=== PATIENT | male | born 1945 | race Caucasian/White ===

== ENCOUNTER 2019-08-24 14:45 | Inpatient (IN) | payer MEDICARE ==
--- OUTSIDE RECORDS SUMMARY | 2019-08-24 15:16 | XMS REPORT | Continuity of Care Document ---
:1945 External Reference #:[id number] Author Name Willow Graff M.D. 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 Available Social History Type Date Description Comments Sex Unknown ETOH Use Currently consumes alcohol Tobacco Use Start: Unknown Patient has never smoked Smoking Status Reviewed: 07/02/19 Patient has never smoked Exercise Type/Frequency Exercises sporadically Allergies, Adverse Reactions, Alerts Description No Known Drug Allergies Medications Active Medications SIG Qnty Indications Ordering Provider Date Metformin HCL 1 by mouth twice Unknown 500mg a day Tablets Advil Unknown Naproxen 1 tablet with Unknown 500mg Tablets food by mouth twice a day Immunizations Description No Information Available Vital Signs Date Vital Result Comment 07/02/2019 10:40am Height 70 inches 5'10" Weight 200.00 lb Heart Rate 77 /min Respiratory Rate 16 /min Body Temperature 96.5 F Pain Level 0 BMI (Body Mass Index) 28.7 kg/m2 06/04/2019 1:45pm Height 70 inches 5'10" Weight 200.00 lb Heart Rate 76 /min Body Temperature 97.8 F O2 % BldC Oximetry 98 % BMI (Body Mass Index) 28.7 kg/m2 Results Description No Information Available Procedures Description No Information Available Medical Devices Description No Information Available Encounters Type Date Location Provider Dx Diagnosis Office Visit 06/04/2019 [facility] Nury Roque, S67.02xD Crushing injury 1:30p at [place] [facility]-C of left thumb, subsequent encounter S62.525D Nondisp fx of dist phalanx of l thm, 7thD Office Visit 05/22/2019 [facility] S67.02xA Crushing injury 2:00p [facility] at [place] of left thumb, [place] initial encounter S62.525B Nondisp fx of distal phalanx of left thumb, init for opn fx Assessments Date Code Description Provider 07/02/2019 S67.02xD Crushing injury of left thumb, subsequent Willow Graff M.D. encounter 07/02/2019 S62.525D Nondisplaced fracture of distal phalanx of Willow Graff M.D. left thumb, subsequent encounter for fracture with routine healing 06/04/2019 S67.02xD Crushing injury of left thumb, subsequent Nury Lópezrainer , [facility] encounter 06/04/2019 S62.525D Nondisplaced fracture of distal phalanx of Nury Roque, [facility] left thumb, subsequent encounter for fracture with routine healing 05/22/2019 S67.02xA Crushing injury of left thumb, initial Willow Graff M.D. encounter 05/22/2019 S62.525B Nondisplaced fracture of distal phalanx of Willow Graff M.D. left thumb, initial encounter for open fracture Plan of Treatment Future Appointment(s):08/13/2019 10:15 am - Willow Graff M.D. at [facility] at Imxwjg2607/02/2019 - Willow Graff M.D.S67.02xD Crushing injury of left thumb, subsequent encounterNew Therapy:Physical TherapyFollow up:Follow up: 6 [id number] Nondisplaced fracture of distal phalanx of left thumb, subsequent encounter for fracture with routine healing Functional Status Description No Information Available Mental Status Description No Information Available Referrals Description No Information Available
--- OUTSIDE RECORDS SUMMARY | 2019-08-24 15:16 | XMS REPORT | Continuity of Care Document ---
:1945 External Reference #:[id number] Author Name Willow Graff M.D. 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 Problems Description No Information Available Social History Type Date Description Comments Sex Unknown ETOH Use Currently consumes alcohol Tobacco Use Start: Unknown Patient has never smoked Smoking Status Reviewed: 08/13/19 Patient has never smoked Exercise Type/Frequency Exercises sporadically Allergies, Adverse Reactions, Alerts Description No Known Drug Allergies Medications Active Medications SIG Qnty Indications Ordering Provider Date Metformin HCL 1 by mouth twice Unknown 500mg Tablets a day Advil Unknown Immunizations Description No Information Available Vital Signs Date Vital Result Comment 08/13/2019 10:48am Height 70 inches 5'10" Weight 200.00 lb Heart Rate 82 /min BP Systolic 132 mmHg BP Diastolic 78 mmHg Respiratory Rate 18 /min O2 % BldC Oximetry 98 % BMI (Body Mass Index) 28.7 kg/m2 07/02/2019 10:40am Height 70 inches 5'10" Weight 200.00 lb Heart Rate 77 /min Respiratory Rate 16 /min Body Temperature 96.5 F Pain Level 0 BMI (Body Mass Index) 28.7 kg/m2 Results Description No Information Available Procedures Description No Information Available Medical Devices Description No Information Available Encounters Type Date Location Provider Dx Diagnosis Office Visit 07/02/2019 [facility] Willow Graff, S67.02xD Crushing injury 10:30a at [place] [facility] of left thumb, subsequent encounter S62.525D Nondisp fx of dist phalanx of l thm, 7thD Office Visit 06/04/2019 Ab[facility] Arrington S67.02xD Crushing injury 1:30p Orthopedics at [facility], RPA-C of left thumb, [place] subsequent encounter S62.525D Nondisp fx of dist phalanx of l thm, 7thD Office Visit 05/22/2019 [facility] Albertoie S67.02xA Crushing injury 2:00p [facility] at [place] Graff of left thumb, [place] initial encounter S62.525B Nondisp fx of distal phalanx of left thumb, init for opn fx Assessments Date Code Description Provider 08/13/2019 S67.02xD Crushing injury of left thumb, subsequent Willow Graff M.D. encounter 08/13/2019 S62.525D Nondisplaced fracture of distal phalanx of Willow Graff M.D. left thumb, subsequent encounter for fracture with routine healing 07/02/2019 S67.02xD Crushing injury of left thumb, subsequent Willow Graff M.D. encounter 07/02/2019 S62.525D Nondisplaced fracture of distal phalanx of Willow Graff M.D. left thumb, subsequent encounter for fracture with routine healing 06/04/2019 S67.02xD Crushing injury of left thumb, subsequent Nury Roque , [facility] encounter 06/04/2019 S62.525D Nondisplaced fracture of distal phalanx of Nury Rouqe, [facility]-C left thumb, subsequent encounter for fracture with routine healing 05/22/2019 S67.02xA Crushing injury of left thumb, initial Willow Graff M.D. encounter 05/22/2019 S62.525B Nondisplaced fracture of distal phalanx of Willow Graff M.D. left thumb, initial encounter for open fracture Plan of Treatment Future Appointment(s):08/19/2019 10:00 am - José Manuel Sunshine MD at [facility]08/13/2019 - Willow Graff M.D.S67.02xD Crushing injury of left thumb, subsequent encounterFollow up:Follow up: As [id number] Nondisplaced fracture of distal phalanx of left thumb, subsequent encounter for fracture with routine healing Functional Status Description No Information Available Mental Status Description No Information Available Referrals Description No Information Available
--- OUTSIDE RECORDS SUMMARY | 2019-08-24 15:16 | XMS REPORT | Continuity of Care Document ---
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 Problems Description No Information Available Social History Type Date Description Comments Sex Unknown ETOH Use Currently consumes alcohol Tobacco Use Start: Unknown Patient has never smoked Smoking Status Reviewed: 08/22/19 Patient has never smoked Exercise Type/Frequency Exercises sporadically Allergies, Adverse Reactions, Alerts Description No Known Drug Allergies Medications Active Medications SIG Qnty Indications Ordering Date Provider Celecoxib take one cap by 180caps M06.4 José Manuel Sunshine, 08/22/2019 200mg mouth twice daily MD Capsules for arthritis pain Metformin HCL 1 by mouth twice a Unknown 500mg day Tablets Sildenafil Citrate Take 2-5 Tablets Unknown By Mouth Every Day 20mg Tablets as Needed Immunizations Description No Information Available Vital Signs Date Vital Result Comment 08/22/2019 7:46am Height 70 inches 5'10" Weight 188.00 lb Heart Rate 94 /min BP Systolic 131 mmHg BP Diastolic 81 mmHg Body Temperature 98.2 F Pain Level 0 O2 % BldC Oximetry 95 % BMI (Body Mass Index) 27.0 kg/m2 08/13/2019 10:48am Height 70 inches 5'10" Weight 200.00 lb Heart Rate 82 /min BP Systolic 132 mmHg BP Diastolic 78 mmHg Respiratory Rate 18 /min O2 % BldC Oximetry 98 % BMI (Body Mass Index) 28.7 kg/m2 Results Description No Information Available Procedures Description No Information Available Medical Devices Description No Information Available Encounters Type Date Location Provider Dx Diagnosis Office Visit 08/13/2019 [facility] Willow S67.02xD Crushing injury 10:15a at [place] of left thumb, subsequent encounter S62.525D Nondisp fx of dist phalanx of l thm, 7thD Office Visit 07/02/2019 [facility] Daugherty S67.02xD Crushing injury 10:30a [facility] at [place] of left thumb, [place] subsequent encounter S62.525D Nondisp fx of dist phalanx of l thm, 7thD Office Visit 06/04/2019 Abbe Arrington S67.02xD [facility] 1:[facility] [place] subsequent encounter S62.525D Nondisp fx of dist phalanx of l thm, 7thD Office Visit 05/22/2019 Abbe De Souzahanie S67.02xA Crushing injury 2:00p [facility]oped[facility] at [place] of left thumb, [place] initial encounter S62.525B Nondisp fx of distal phalanx of left thumb, init for opn fx Assessments Date Code Description Provider 08/22/2019 M06.4 Inflammatory polyarthropathy José Manuel Sunshine MD 08/22/2019 R76.0 Raised antibody titer José Manuel Sunshine MD 08/13/2019 S67.02xD Crushing injury of left thumb, subsequent Willow Caal M.D. encounter 08/13/2019 S62.525D Nondisplaced fracture of distal phalanx of Willow Caal M.D. left thumb, subsequent encounter for fracture with routine healing 07/02/2019 S67.02xD Crushing injury of left thumb, subsequent Willow Caal M.D. encounter 07/02/2019 S62.525D Nondisplaced fracture of distal phalanx of Willow Caal M.D. left thumb, subsequent encounter for fracture with routine healing 06/04/2019 S67.02xD Crushing injury of left thumb, subsequent [facility] RPA-C encounter 06/04/2019 S62.525D Nondisplaced fracture of distal phalanx of Nury Roque, RPA-C left thumb, subsequent encounter for fracture with routine healing 05/22/2019 S67.02xA Crushing injury of left thumb, initial Willow Caal M.D. encounter 05/22/2019 S62.525B Nondisplaced fracture of distal phalanx of Willow Caal M.D. left thumb, initial encounter for open fracture Plan of Treatment Future Appointment(s):10/27/2019 11:00 am - José Manuel Sunshine MD at [facility]/22/2019 - José Manuel Sunshine, MDM06.4 Inflammatory polyarthropathyNew Medication:Celecoxib 200 mg - take one cap by mouth twice daily for arthritis painComments:Concern for possible Psoriatic Arthritis ( brother has psoriasis)Celebrex (celecoxib) twice dailyWhenyou start this, STOP PREDNISONELabs I recommend:JENNY panel, CK and aldolase, quantiferon TB, hepatitis B core and surface antibody, Hepatitis C antibody, repeat ESR and CRP , CCPFollow up:8 [id number] Raised antibody titer Functional Status Description No Information Available Mental Status Description No Information Available Referrals Description No Information Available
--- NOTE | 2019-08-24 15:22 | ED ---
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 His family notes that he has had a cough along with a cold for 1.5 weeks, but denies any other noteworthy symptoms such as fever. Family notes that he has been eating less lately as he has been trying to lose weight, and drinking a lot of fluids that likely include juice. He has a history of pre- diabetes as well as a thumb injury for which he saw a deliver driver last week. He takes Metformin BID and Celebrex BID; family notes he has only take the Celebrex at 2100 yesterday and 0900 today. He lives by himself. - History Of Current Complaint Chief Complaint: EDDiabeticProb Time Seen by Provider: 08/24/19 15:15 Hx Obtained From: Family/Identification Officer Onset/Duration: Still Present Location: Negative Character: Unable To Describe Associated Signs And Symptoms: Positive: Weakness, Cough, Other - lethargy. Negative: Fever - Allergies/Home Medications Allergies/Adverse Reactions: Allergies Allergy/AdvReac Type Severity Reaction Status Date / Time No Known Allergies Allergy Verified 08/24/19 16:49 Home Medications: Home Medications Metformin HCl 500 mg PO BID 08/24/19 [History Confirmed 08/24/19] celeCOXIB CAP* [Celebrex CAP*] 200 mg PO BID 08/24/19 [History Confirmed ] PMH/Surg Hx/FS Hx/Imm Hx Musculoskeletal History: Denies: Hx Rheumatoid Arthritis, Hx Osteoporosis Sensory History: Denies: Hx Legally Blind, Hx Deafness Opthamlomology History: Denies: Hx Legally Blind EENT History: Denies: Hx Deafness - Immunization History Date of Influenza Vaccine: none Infectious Disease History: No Infectious Disease History: Denies: Traveled Outside the [place] in Last 30 Days - Family History Known Family History: Negative: Hypertension, Diabetes - Social History Alcohol Use: Rare Substance Use Type: Reports: None Smoking Status (MU): Never Smoked Tobacco Review of Systems Constitutional: Other - lethargy Negative: Fever Positive: Cough Positive: Weakness All Other Systems Reviewed And Are Negative: Yes Physical Exam - Summary Physical Exam Summary: VITAL SIGNS: Reviewed. GENERAL: Patient is an elderly male who seems ill. Patient is not in any acute respiratory distress. HEAD AND FACE: No signs of trauma. No ecchymosis, hematomas or skull depressions. No sinus tenderness. EYES: PERRLA, EOMI x 2, No injected conjunctiva, no nystagmus. EARS: Hearing grossly intact. Ear canals and tympanic membranes are within normal limits. MOUTH: Oropharynx within normal limits. Dry oral mucosa. NECK: Supple, trachea is midline, no adenopathy, no JVD, no carotid bruit, no c- spine tenderness, neck with full ROM. CHEST: Symmetric, no tenderness at palpation. LUNGS: Clear to auscultation bilaterally. No wheezing. Crackles in base of both lungs. CVS: Regular rate and rhythm, S1 and S2 present, no murmurs or gallops appreciated. ABDOMEN: Soft, non-tender. No signs of distention. No rebound, no guarding, and no masses palpated. Bowel sounds are normal. EXTREMITIES: FROM in all major joints, no edema, no cyanosis or clubbing. NEURO: Alert and oriented x 3. No acute neurological deficits. Speech is normal and follows commands. SKIN: Dry and warm. Increased turgor. Triage Information Reviewed: Yes Vital Signs On Initial Exam: Initial Vitals Temp Pulse Resp BP Pulse Ox 98.1 F 103 18 159/99 91 08/24/19 14:56 08/24/19 14:56 08/24/19 14:56 08/24/19 14:56 08/24/19 14:56 Vital Signs Reviewed: Yes Procedures - Sedation Patient Received Moderate/Deep Sedation with Procedure: No Diagnostics - Vital Signs Vital Signs Temp Pulse Resp BP Pulse Ox 08/24/19 14:56 98.1 F 103 18 159/99 91 - Laboratory Result Diagrams: 08/24/19 16:18 08/25/19 06:09 Lab Statement: Any lab studies that have been ordered have been reviewed, and results considered in the medical decision making process. - Radiology chest x-ray Radiology Interpretation Completed By: Radiologist Summary of Radiographic Findings: IMPRESSION: 1. Left greater than right basilar airspace opacification (infiltrate versus. atelectasis). 2. Severe left glenohumeral osteoarthropathy. This report was reviewed by the ED physician. - EKG 1545 Cardiac Rate: Tachycardia EKG Rhythm: Sinus Tachycardia Summary of EKG Findings: Sinus tachycardia at 102bpm. Q wave in leads II and III. No STEMI. This EKG was reviewed and interpreted by the ED physician. 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 His family notes that he has had a cough along with a cold for 1.5 weeks, but denies any other noteworthy symptoms such as fever. Family notes that he has been eating less lately as he has been trying to lose weight, and drinking a lot of fluids that likely include juice. He has a history of pre-diabetes as well as a thumb injury for which he saw a deliver driver last week. He takes Metformin BID and Celebrex BID; family notes he has only take Celebrex at 2100 yesterday and 0900 today. He lives by himself. In the ED course the patient was placed in a case monitor, IV access was obtained,2 liters of IV fluids started and Rocephin given for productive cough and questionable fever. Blood test w/o a significant abnormality except for sodium 151, anion gap is 21, BUN is 39, creatinine is 1.63, glucose 1 dose and 43, calcium 10.4, magnesium is 3.1, alkaline phosphatase is 212, and CRP of 288. Urinalysis is negative for UTI. Influenza A and B is negative. Chest x-ray impression: Left greater than right basilar airspace opacification. In the ED course the patient continues with IV fluids and the patient was placed in an insulin drip. I discussed my physical exam and findings with Dr. Calles from the hospital services who accepted the patient for the ICU services. - Diagnoses Provider Diagnoses: Diabetic hyperosmolar non-ketotic state, Hypernatremia, Dehydration, Acute renal insufficiency - Physician Notifications Discussed Care Of Patient With: Susanne Calles Time Discussed With Above Provider: 17:16 Instructed by Provider To: Other - Patient's case was discussed with Dr. Calles , who agrees to admit. - Critical Care Time Critical Care Time: 30-74 min Discharge ED - Sign-Out/Discharge Documenting (check all that apply): Patient Departure - admit - Discharge Plan Condition: Stable Disposition: ADMITTED TO [facility] - Billing Disposition and Condition Condition: STABLE Disposition: Admitted to [facility] - Attestation Statements Document Initiated by Scribe: Yes Documenting Scribe: Handy Tilley Provider For Whom Willie is Documenting (Include Credential): Robel Theodore MD Scribe Attestation: I, Handy Tilley, scribed for Robel Theodore MD on 08/25/19 at 1337. Scribe Documentation Reviewed: Yes Provider Attestation: The documentation as recorded by the Handy romero accurately reflects the service I personally performed and the decisions made by me, Robel Theodore MD Status of Scribe Document: Viewed
[2019-08-24] MEDS ORDERED: NS 0.9% 1000 ML** 2,000 ML IV ONE (15:29)
[2019-08-24 16:11] LABS: Influenza A Molecular Negative (Negative); Influenza B Molecular Negative (Negative)
[2019-08-24 16:30] LABS: ABS Neutrophils 8.5 10^3/ul (1.5-7.7); Hematocrit 47 % (42-52); Hemoglobin 15.3 g/dL (14.0-18.0); Lymphocyte % 9.7 %; Mean Corpuscular HGB Conc 33 g/dL (31-36); Mean Corpuscular Hemoglobin 34 pg (27-31); Mean Corpuscular Volume 102 fL (80-94); Mean Platelet Volume 8.9 fL (7.4-10.4); Platelet Count 252 10^3/uL (150-450); Red Blood Count 4.58 10^6 /uL (4.18-5.48); Red Cell Distribution Width 15 % (10-15); White Blood Count 10.6 10^3/uL (3.5-10.8)
[2019-08-24 16:44] LABS: Alcohol < 10 mg/dL (<10)
[2019-08-24 16:45] LABS: Urine Appearance Clear; Urine Blood Negative (Negative); Urine Color Straw; Urine Ketones 1+ (Negative); Urine Protein Negative (Negative); Urine Urobilinogen Negative (Negative)
[2019-08-24 16:46] LABS: Urine Bilirubin Negative (Negative); Urine Glucose 3+(>=500 mg/dL) (Negative); Urine Nitrite Negative (Negative)
[2019-08-24 16:46] LABS: ALT 30 U/L (7-52); AST 14 U/L (13-39); Albumin 3.9 g/dL (3.2-5.2); Albumin/Globulin Ratio 1.1 (1-3); Alkaline Phosphatase 212 U/L (34-104); BUN/Creatinine Ratio 23.9 (8-20); Blood Urea Nitrogen 39 mg/dL (6-24); C Reactive Protein 288.44 mg/L (<8.01); CO2 Carbon Dioxide 22 mmol/L (22-32); Calcium 10.4 mg/dL (8.6-10.3); Chloride 108 mmol/L (101-111); Creatine Kinase 194 U/L (10-223); EGFR African American 50.6 (>60); EGFR Non-African American 41.8 (>60); Globulin 3.7 g/dL (2-4); Magnesium 3.1 mg/dL (1.9-2.7); Potassium 4.8 mmol/L (3.5-5.0); Total Protein 7.6 g/dL (6.4-8.9)
[2019-08-24 16:47] LABS: Anion Gap 21 mmol/L (2-11); Sodium 151 mmol/L (135-145)
[2019-08-24 16:48] LABS: Troponin I 0.01 ng/mL (<0.03)
[2019-08-24] MEDS ORDERED: cefTRIAXone(*) 1 GM in NS 0.9% 50 ML* 50 ML IVPB ONE (16:53)
[2019-08-24 17:06] LABS: Glucose 1043 mg/dL (70-100)
[2019-08-24] MEDS: NS 0.9% 1000 ML** 1,000 ML IV ONE ×2 (17:35→18:01)
[2019-08-24] MEDS ORDERED: Insulin Infusion 100unit/100mL 100 UNIT/100 ML BAG IV SCH ×2 (18:00→21:00)
[2019-08-24] MEDS: Insulin Infusion 100unit/100mL 100 UNIT/100 ML BAG IV SCH ×2 (18:01→20:52)
[2019-08-24] MEDS ORDERED: Al Hydrox/Mg Hydrox/Simet LIQ* 30 ML UDC PO PRN (18:16)
[2019-08-24] MEDS ORDERED: Senna TAB 8.6 mg* TAB PO PRN (18:16)
[2019-08-24] MEDS ORDERED: Acetaminophen TAB* 325 MG PO PRN (18:16)
[2019-08-24] MEDS ORDERED: Ondansetron INJ* 2 MG/ML VIAL IV PRN (18:16)
[2019-08-24] MEDS ORDERED: Insulin REGULAR(*) 1 UNITS UNIT IV PUSH ONE (18:25)
[2019-08-24] MEDS ORDERED: Lactated Ringers 1000 ML Bag* 1,000 ML IV SCH ×3 (19:00)
[2019-08-24 19:10] LABS: BUN/Creatinine Ratio 25.4 (8-20); EGFR African American 63.4 (>60); EGFR Non-African American 52.4 (>60); Potassium 4.6 mmol/L (3.5-5.0)
[2019-08-24] MEDS: Enoxaparin(*) 40 MG/0.4 ML SYR SUBCUT SCH (20:51)
[2019-08-24] MEDS: Azithromycin 500 mg/250 ml NS 500 MG/250 ML BAG IVPB SCH (20:51)
[2019-08-24 22:47] LABS: BUN/Creatinine Ratio 24.5 (8-20); Calcium 9.1 mg/dL (8.6-10.3); EGFR African American 79.6 (>60); EGFR Non-African American 65.8 (>60); Potassium 3.7 mmol/L (3.5-5.0)
--- NOTE | 2019-08-24 22:56 | HP ---
CC: Dr. Joe Kaur * HISTORY AND PHYSICAL: DATE OF ADMISSION: 08/24/19 PROVIDER: OLIVER Gandara. ATTENDING PHYSICIAN WHILE IN THE HOSPITAL: Dr. Nayeli Colvin * (dictated by OLIVER Gandara). PRIMARY CARE PROVIDER: Dr. Joe Kaur. CHIEF COMPLAINT: Altered mental status. HISTORY OF PRESENT ILLNESS: Wolf Murray is a 73-year-old white male with past medical history significant for inflammatory polyarthropathy and diabetes mellitus type 2, who presented to the emergency department today in a private vehicle with his sister due to being found to have altered mental status at home. The patient's sister spoke with him yesterday and he appeared to be his normal self though he was reportedly feeling somewhat unwell with URI symptoms. The patient is a poor historian at this time and much of the history is gathered from his sister. The patient's friend went over to his house today and found him to be significantly altered and incoherent. The patient called the patient's sister because he was refusing EMS or to be brought to the emergency department. The sister went to his house and then brought him to the emergency department himself. The patient is frequently not answering questions appropriately and taking a lot of prompting to get answers though he does answer questions appropriately at times. He tells me he does not have fevers or chills, chest pain, difficulty breathing, abdominal pain. He did mention that he vomited once today and was feeling nauseous at that time, but is no longer feeling nauseous. He denies abdominal pain, diarrhea, constipation. He does mention that he has had blurred vision today and denies scotoma. He tells me he has been drinking a lot of juice and milk. His sister tells me that he is doing this because of an attempted liquid diet to lose weight and she is unsure of why. She believes he stopped taking his prednisone 2 to 3 days ago when he started taking Celebrex upon direction from Dr. Ferreira. I did review outpatient records and Dr. Ferreira is questioning whether the patient has psoriatic arthritis, but at this point would describe him to have inflammatory polyarthropathy, however, some labs are pending. ED COURSE: The patient was found to have glucose of 1043 and sodium of 151. His lactic acid was 4.4. Emergency department gave the patient 1 g of ceftriaxone and started insulin infusion at 4 units per hour and asked the hospitalist to evaluate the patient for admission. PAST MEDICAL HISTORY: 1. Diabetes mellitus type 2. 2. Inflammatory polyarthropathy previously on prednisone, which was recently discontinued with a slow taper. PAST SURGICAL HISTORY: 1. Left shoulder surgery when the patient was a teenager. 2. Hernia repair. HOME MEDICATIONS: 1. Metformin 500 mg p.o. b.i.d. 2. Celebrex 200 mg p.o. b.i.d. ALLERGIES: No known drug allergies. FAMILY HISTORY: Father at age 70 due to aortic aneurysm. Mother at age 99 due to complications related to UTI and was otherwise healthy. Neither parent had history of coronary artery disease or diabetes. SOCIAL HISTORY: The patient lives alone. He is . He has 2 adult children who live out of the area. 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 He rarely drinks alcohol. He denies tobacco use, was never a smoker, and denies illicit drug use. The patient's sister, Abbey Murray, is his surrogate medical decision maker should he need one. REVIEW OF SYSTEMS: An 11-point review of systems was completed and all pertinent positives and negatives are above in the HPI. All other systems are negative. PHYSICAL EXAMINATION GENERAL: An elderly white male, lying in hospital bed, appearing comfortable, and in no acute distress. Sister at bedside. VITAL SIGNS: Temperature 98.1 degrees Fahrenheit; pulse 106, later 92 beats per minute; respiratory rate 21 beats per minute and later 37 respirations per minute; oxygen saturation 88% on room air; blood pressure 159/99. HEENT: Head: Normocephalic, atraumatic. Eyes: Horizontal jerk nystagmus at rest as well as with extraocular movements on exam. Unable to assess visual field defect due to nystagmus and poor attention. Pupils are equal and reactive to light and accommodation, unable to perform retinal exam due to nystagmus. ENT: Mucous membranes significantly dry, edentulous. NECK: Supple without JVD. LUNGS: Clear to auscultation throughout. CARDIO: Regular rate and rhythm without murmurs, rubs, or gallops. ABDOMEN: Normoactive bowel sounds x4 quadrants. Abdomen is soft, nontender, nondistended without suprapubic tenderness. EXTREMITIES: No clubbing, cyanosis or edema. NEURO: The patient is alert and oriented to self and time, but not to location or situation with significantly poor attention, answers questions inappropriately at times, is able to follow basic commands. Strength is 5/5 in all extremities. Sensation is grossly intact throughout. Tongue is midline. Speech is dysarthric; however, this may be secondary to dryness of mucous membranes. Face is symmetrical. SKIN: Warm dry and intact. DIAGNOSTIC STUDIES/LAB DATA: White blood cell count 10.6, hemoglobin 15.3, hematocrit 47, platelets 252. Sodium 151, potassium 4.8, chloride is 108, carbon dioxide 22, anion gap 21, BUN 39, creatinine 1.63, glucose 1043, lactic acid 4.4, calcium 10.4, magnesium 3.1. Total bilirubin 0.5, AST 14, ALT 30, alk phos 212. CK is 194, CRP is 288, troponin 0.01. Urinalysis with +1 ketones , +3 glucose. Otherwise unremarkable. Serum alcohol less than 10. Influenza A and B negative. ABG pH 7.43, ABG CO2 32, ABG 02 66, ABG bicarb 23. Chest x-ray, impression: Left greater than right basilar airspace opacification , severe left glenohumeral osteoarthropathy. EKG: Sinus tachycardia, rate 102 beats per minute. No prior EKGs for comparison, less than [address] depressions in V4 and V5. CT of the brain report is pending from radiologist at this time; however, I do not see intracranial hemorrhage per my read. ASSESSMENT AND PLAN: Wolf Murray is a 73-year-old white male with past medical history significant for diabetes mellitus type 2 and inflammatory polyarthropathy, who presents to the emergency department today due to altered mental status. The patient will be admitted inpatient to the ICU for: 1. Hyperosmolar hyperglycemic state. The patient has significant hypernatremia when corrected for his significant hyperglycemia, the sodium is actually 174. The patient was started on insulin drip at 4 units per hour and this needs to be adjusted based on his q.1 fingersticks. I will give a bolus of IV regular insulin 10 units at this time. Repeat BMPs q.4 hours. His bicarb is within normal limits. At this time, his ABG has an incompensated pH. He does have a significant lactic acidosis to 4.4 and I will repeat this in 3 hours. His altered mental status is most likely related to his hyperosmolar hyperglycemic state. The patient has already received 2 L of normal saline at the emergency department. I would like to give an additional 2 L bolus at 1000 cc per hour of lactated Ringer's and then after that one 200 cc of lactated Ringer's per hour. I have added serum osmolality as well as the hemoglobin A1c. 2. Acute kidney injury. The patient has a creatinine of 1.63 and a BUN of 39 and I received access to [facility] to view BUN and creatinine from December 2018, which demonstrated BUN of 18 and creatinine of 0.9. This is likely prerenal in the setting of significant dehydration due to hyperosmolar hyperglycemic state and I expect this to improve with vigorous IV fluids. 3. Resting jerk nystagmus. I believe that the patient's jerk nystagmus is a finding of his significant metabolic abnormalities. I did discuss this case with Dr. Sotelo who agrees that this is the likely cause. I will admit the patient with q.4 neuro checks and I did perform a CT of the brain and the report is pending at this time. If his altered mental status and his oculomotor finding did not improve with improvement of his metabolic status, further testing should occur. 4. Lactic acidosis. This is secondary to hyperosmolar hyperglycemic state. Given that the patient also has tachycardia and tachypnea, he did meet systemic inflammatory response syndrome criteria. However, I do not believe there is any source of infection. I believe his tachycardia is due to his severe dehydration. His tachypnea actually has improved. I will order a D-dimer to rule out pulmonary embolism. I will not continue empiric antibiotics. Though the patient does have a CRP that is elevated to 288.4, his urinalysis is unconcerning for any infection and his chest x-ray as well looks without any concern for consolidation. I believe this elevated CRP is related to his inflammatory polyarthropathy, which Dr. Ferreira believes is likely psoriatic arthritis. However, we should continue to trend this. 5. Inflammatory polyarthropathy. The patient's recent use of prednisone likely possibly contributed to progression of his developing in addition to this diet. However, he has been off prednisone for 2 or 3 days and at this time I will be holding his Celebrex due to his kidney injury. 6. Diabetes mellitus type 2. I am holding the patient's home metformin. Fingersticks and insulin as above. I will order a registered dietitian consult as the patient evidently did not realize the risks of drinking high volumes of juice and milk without other foods. 7. FEN: Fluids and electrolytes. As previously mentioned, the patient will have a carbohydrate consistent diet. 8. DVT prophylaxis: The patient has a DVT risk score of 2. I will order Lovenox 40 mg subcu daily. 9. Code status: The patient is a full code. TIME SPENT: Approximately 60 minutes was spent on this admission, approximately half this time was spent at bedside evaluating the patient and discussing the plan of care. This case has been reviewed by my attending, Dr. Nayeli Colvin and she agrees with this plan of care. OLIVER GANDARA [id number]/CPS #: [id number]
[2019-08-25 03:00] LABS: BUN/Creatinine Ratio 23.4 (8-20); Calcium 9.3 mg/dL (8.6-10.3); EGFR African American 82.2 (>60); EGFR Non-African American 67.9 (>60); Potassium 3.6 mmol/L (3.5-5.0)
[2019-08-25] MEDS ORDERED: Dextrose 50% VIAL 50 ml IV PRN (03:08)
[2019-08-25] MEDS ORDERED: D5NS 0.9% 1000 ML BAG* 1,000 ML IV SCH ×2 (03:30→05:00)
[2019-08-25] MEDS: KCL 10 MEQ/50 ML IVPREMIX* 10 MEQ/50 ML BAG IV SCH ×2 (03:50→06:13)
[2019-08-25 06:35] LABS: BUN/Creatinine Ratio 22.5 (8-20); C Reactive Protein 209.72 mg/L (<8.01); EGFR African American 78.8 (>60); EGFR Non-African American 65.1 (>60)
--- NOTE | 2019-08-25 09:53 | PN ---
Date of Service: 08/25/19 Critical Care Services: Metabolically improving steadily. Vital Signs: Temp Pulse Resp BP SpO2 FiO2 37.1 C 97 21 111/72 96 08/25/19 03:16 08/25/19 07:01 08/25/19 07:01 08/25/19 07:01 08/25/19 07:01 Physical Exam: Gen: awake and alert without complaint HEENT: NCAT, PERRL Lungs: clear Cardiac: S1S2 regular Abdomen: soft, NT, ND, +BS Extremities: no edema Neuro: A&O, grossly non-focal Fluid Balance (Past 24 Hours): I= O= Net Intake & Output 08/23/19 08/24/19 08/25/19 08/26/19 06:59 06:59 06:59 06:59 Intake Total 5104 Output Total 3500 Balance 1604 Weight 82 kg Intake: IV Fluids 5100 Medicated IV 4 CC - Insulin 4 Oral 0 Output: Urine 3500 Labs: Laboratory Results - last 24 hr 08/24/19 08/24/19 08/24/19 14:50 15:31 15:41 WBC RBC Hgb Hct MCV MCH MCHC RDW Plt Count MPV Neut % (Auto) Lymph % (Auto) [place] % (Auto) Eos % (Auto) Baso % (Auto) Absolute Neuts (auto) Absolute Lymphs (auto) Absolute Monos (auto) Absolute Eos (auto) Absolute Basos (auto) Absolute Nucleated RBC Nucleated RBC % D-Dimer, Quantitative Patient Temperature Not Reportable ABG pH 7.43 ABG pH (Temp Correct) Not Reportable ABG pCO2 32 L ABG pCO2 (Temp Corrct Not Reportable ABG pO2 66 L ABG pO2 (Temp Correct Not Reportable ABG HCO3 23.0 ABG O2 Saturation 95.4 ABG Base Excess -2.3 L Respiration Rate Not Reportable O2 Delivery Device 2lpm nc Ventilator Type Not Reportable Vent Mode Not Reportable FiO2 Not Reportable Inspiratory Time Not Reportable PEEP Not Reportable Pressure Support Not Reportable Pressure Control Not Reportable EPAP Not Reportable IPAP Not Reportable BiPAP Not Reportable Sodium Potassium Chloride Carbon Dioxide Anion Gap BUN Creatinine Est GFR ( Amer) Est GFR (Non-Af Amer) BUN/Creatinine Ratio Glucose POC Glucose (mg/dL) > 444 H* Glucose Meter Confirm Serum Osmolality Lactic Acid Calcium Magnesium Total Bilirubin AST ALT Alkaline Phosphatase Total Creatine Kinase Troponin I C-Reactive Protein Total Protein Albumin Globulin Albumin/Globulin Ratio Urine Color Straw Urine Appearance Clear Urine pH 5 Ur Specific [place] 1.010 Urine Protein Negative Urine Ketones 1+ A Urine Blood Negative Urine Nitrate Negative Urine Bilirubin Negative Urine Urobilinogen Negative Ur Leukocyte Esterase Negative Urine Glucose 3+(>=500 mg/dl) A Urine Ascorbic Acid * A Serum Alcohol Influenza A (Rapid) Influenza B (Rapid) 08/24/19 08/24/19 08/24/19 15:51 16:06 16:18 WBC 10.6 RBC 4.58 Hgb 15.3 Hct 47 MCV 102 H MCH 34 H MCHC 33 RDW 15 Plt Count 252 MPV 8.9 Neut % (Auto) 80.5 Lymph % (Auto) 9.7 [place] % (Auto) 9.7 Eos % (Auto) 0.0 Baso % (Auto) 0.1 Absolute Neuts (auto) 8.5 H Absolute Lymphs (auto) 1.0 Absolute Monos (auto) 1.0 H Absolute Eos (auto) 0.0 Absolute Basos (auto) 0.0 Absolute Nucleated RBC 0.0 Nucleated RBC % 0.0 D-Dimer, Quantitative 214 Patient Temperature ABG pH ABG pH (Temp Correct) ABG pCO2 ABG pCO2 (Temp Corrct ABG pO2 ABG pO2 (Temp Correct ABG HCO3 ABG O2 Saturation ABG Base Excess Respiration Rate O2 Delivery Device Ventilator Type Vent Mode FiO2 Inspiratory Time PEEP Pressure Support Pressure Control EPAP IPAP BiPAP Sodium Potassium Chloride Carbon Dioxide Anion Gap BUN Creatinine Est GFR ( Amer) Est GFR (Non-Af Amer) BUN/Creatinine Ratio Glucose POC Glucose (mg/dL) Glucose Meter Confirm Serum Osmolality Lactic Acid Calcium Magnesium Total Bilirubin AST ALT Alkaline Phosphatase Total Creatine Kinase Troponin I C-Reactive Protein Total Protein Albumin Globulin Albumin/Globulin Ratio Urine Color Urine Appearance Urine pH Ur Specific [place] Urine Protein Urine Ketones Urine Blood Urine Nitrate Urine Bilirubin Urine Urobilinogen Ur Leukocyte Esterase Urine Glucose Urine Ascorbic Acid Serum Alcohol Influenza A (Rapid) Negative Influenza B (Rapid) Negative 08/24/19 08/24/19 08/24/19 16:18 16:18 16:18 WBC RBC Hgb Hct MCV MCH MCHC RDW Plt Count MPV Neut % (Auto) Lymph % (Auto) [place] % (Auto) Eos % (Auto) Baso % (Auto) Absolute Neuts (auto) Absolute Lymphs (auto) Absolute Monos (auto) Absolute Eos (auto) Absolute Basos (auto) Absolute Nucleated RBC Nucleated RBC % D-Dimer, Quantitative Patient Temperature ABG pH ABG pH (Temp Correct) ABG pCO2 ABG pCO2 (Temp Corrct ABG pO2 ABG pO2 (Temp Correct ABG HCO3 ABG O2 Saturation ABG Base Excess Respiration Rate O2 Delivery Device Ventilator Type Vent Mode FiO2 Inspiratory Time PEEP Pressure Support Pressure Control EPAP IPAP BiPAP Sodium 151 H Potassium 4.8 Chloride 108 Carbon Dioxide 22 Anion Gap 21 H BUN 39 H Creatinine 1.63 H Est GFR ( Amer) 50.6 Est GFR (Non-Af Amer) 41.8 BUN/Creatinine Ratio 23.9 H Glucose 1043 H* POC Glucose (mg/dL) Glucose Meter Confirm Serum Osmolality 394 H* Lactic Acid 4.4 H* Calcium 10.4 H Magnesium 3.1 H Total Bilirubin 0.50 AST 14 ALT 30 Alkaline Phosphatase 212 H Total Creatine Kinase 194 Troponin I 0.01 C-Reactive Protein 288.44 H Total Protein 7.6 Albumin 3.9 Globulin 3.7 Albumin/Globulin Ratio 1.1 Urine Color Urine Appearance Urine pH Ur Specific [place] Urine Protein Urine Ketones Urine Blood Urine Nitrate Urine Bilirubin Urine Urobilinogen Ur Leukocyte Esterase Urine Glucose Urine Ascorbic Acid Serum Alcohol < 10 Influenza A (Rapid) Influenza B (Rapid) 08/24/19 08/24/19 08/24/19 18:32 18:42 18:42 WBC RBC Hgb Hct MCV MCH MCHC RDW Plt Count MPV Neut % (Auto) Lymph % (Auto) [place] % (Auto) Eos % (Auto) Baso % (Auto) Absolute Neuts (auto) Absolute Lymphs (auto) Absolute Monos (auto) Absolute Eos (auto) Absolute Basos (auto) Absolute Nucleated RBC Nucleated RBC % D-Dimer, Quantitative Patient Temperature ABG pH ABG pH (Temp Correct) ABG pCO2 ABG pCO2 (Temp Corrct ABG pO2 ABG pO2 (Temp Correct ABG HCO3 ABG O2 Saturation ABG Base Excess Respiration Rate O2 Delivery Device Ventilator Type Vent Mode FiO2 Inspiratory Time PEEP Pressure Support Pressure Control EPAP IPAP BiPAP Sodium 158 H* Potassium 4.6 Chloride 121 H Carbon Dioxide 22 Anion Gap 15 H BUN 34 H Creatinine 1.34 H Est GFR ( Amer) 63.4 Est GFR (Non-Af Amer) 52.4 BUN/Creatinine Ratio 25.4 H Glucose 701 H* POC Glucose (mg/dL) > 444 H* Glucose Meter Confirm Serum Osmolality Lactic Acid 2.1 H* Calcium 9.0 Magnesium Total Bilirubin AST ALT Alkaline Phosphatase Total Creatine Kinase Troponin I C-Reactive Protein Total Protein Albumin Globulin Albumin/Globulin Ratio Urine Color Urine Appearance Urine pH Ur Specific [place] Urine Protein Urine Ketones Urine Blood Urine Nitrate Urine Bilirubin Urine Urobilinogen Ur Leukocyte Esterase Urine Glucose Urine Ascorbic Acid Serum Alcohol Influenza A (Rapid) Influenza B (Rapid) 08/24/19 08/24/19 08/24/19 20:16 20:30 21:14 WBC RBC Hgb Hct MCV MCH MCHC RDW Plt Count MPV Neut % (Auto) Lymph % (Auto) [place] % (Auto) Eos % (Auto) Baso % (Auto) Absolute Neuts (auto) Absolute Lymphs (auto) Absolute Monos (auto) Absolute Eos (auto) Absolute Basos (auto) Absolute Nucleated RBC Nucleated RBC % D-Dimer, Quantitative Patient Temperature ABG pH ABG pH (Temp Correct) ABG pCO2 ABG pCO2 (Temp Corrct ABG pO2 ABG pO2 (Temp Correct ABG HCO3 ABG O2 Saturation ABG Base Excess Respiration Rate O2 Delivery Device Ventilator Type Vent Mode FiO2 Inspiratory Time PEEP Pressure Support Pressure Control EPAP IPAP BiPAP Sodium Potassium Chloride Carbon Dioxide Anion Gap BUN Creatinine Est GFR ( Amer) Est GFR (Non-Af Amer) BUN/Creatinine Ratio Glucose POC Glucose (mg/dL) > 444 H* 426 H* Glucose Meter Confirm 486 H Serum Osmolality Lactic Acid Calcium Magnesium Total Bilirubin AST ALT Alkaline Phosphatase Total Creatine Kinase Troponin I C-Reactive Protein Total Protein Albumin Globulin Albumin/Globulin Ratio Urine Color Urine Appearance Urine pH Ur Specific [place] Urine Protein Urine Ketones Urine Blood Urine Nitrate Urine Bilirubin Urine Urobilinogen Ur Leukocyte Esterase Urine Glucose Urine Ascorbic Acid Serum Alcohol Influenza A (Rapid) Influenza B (Rapid) 08/24/19 08/24/19 08/24/19 21:25 22:22 23:20 WBC RBC Hgb Hct MCV MCH MCHC RDW Plt Count MPV Neut % (Auto) Lymph % (Auto) [place] % (Auto) Eos % (Auto) Baso % (Auto) Absolute Neuts (auto) Absolute Lymphs (auto) Absolute Monos (auto) Absolute Eos (auto) Absolute Basos (auto) Absolute Nucleated RBC Nucleated RBC % D-Dimer, Quantitative Patient Temperature ABG pH ABG pH (Temp Correct) ABG pCO2 ABG pCO2 (Temp Corrct ABG pO2 ABG pO2 (Temp Correct ABG HCO3 ABG O2 Saturation ABG Base Excess Respiration Rate O2 Delivery Device Ventilator Type Vent Mode FiO2 Inspiratory Time PEEP Pressure Support Pressure Control EPAP IPAP BiPAP Sodium 161 H* Potassium 3.7 Chloride 126 H Carbon Dioxide 28 Anion Gap 7 BUN 27 H Creatinine 1.10 Est GFR ( Amer) 79.6 Est GFR (Non-Af Amer) 65.8 BUN/Creatinine Ratio 24.5 H Glucose 365 H POC Glucose (mg/dL) 434 H* Glucose Meter Confirm 377 H Serum Osmolality Lactic Acid Calcium 9.1 Magnesium Total Bilirubin AST ALT Alkaline Phosphatase Total Creatine Kinase Troponin I C-Reactive Protein Total Protein Albumin Globulin Albumin/Globulin Ratio Urine Color Urine Appearance Urine pH Ur Specific [place] Urine Protein Urine Ketones Urine Blood Urine Nitrate Urine Bilirubin Urine Urobilinogen Ur Leukocyte Esterase Urine Glucose Urine Ascorbic Acid Serum Alcohol Influenza A (Rapid) Influenza B (Rapid) 08/25/19 08/25/19 08/25/19 00:03 01:16 02:30 WBC RBC Hgb Hct MCV MCH MCHC RDW Plt Count MPV Neut % (Auto) Lymph % (Auto) [place] % (Auto) Eos % (Auto) Baso % (Auto) Absolute Neuts (auto) Absolute Lymphs (auto) Absolute Monos (auto) Absolute Eos (auto) Absolute Basos (auto) Absolute Nucleated RBC Nucleated RBC % D-Dimer, Quantitative Patient Temperature ABG pH ABG pH (Temp Correct) ABG pCO2 ABG pCO2 (Temp Corrct ABG pO2 ABG pO2 (Temp Correct ABG HCO3 ABG O2 Saturation ABG Base Excess Respiration Rate O2 Delivery Device Ventilator Type Vent Mode FiO2 Inspiratory Time PEEP Pressure Support Pressure Control EPAP IPAP BiPAP Sodium 165 H* Potassium 3.6 Chloride 128 H Carbon Dioxide 29 Anion Gap 8 BUN 25 H Creatinine 1.07 Est GFR ( Amer) 82.2 Est GFR (Non-Af Amer) 67.9 BUN/Creatinine Ratio 23.4 H Glucose 124 H POC Glucose (mg/dL) 311 H 302 H Glucose Meter Confirm Serum Osmolality Lactic Acid Calcium 9.3 Magnesium Total Bilirubin AST ALT Alkaline Phosphatase Total Creatine Kinase Troponin I C-Reactive Protein Total Protein Albumin Globulin Albumin/Globulin Ratio Urine Color Urine Appearance Urine pH Ur Specific [place] Urine Protein Urine Ketones Urine Blood Urine Nitrate Urine Bilirubin Urine Urobilinogen Ur Leukocyte Esterase Urine Glucose Urine Ascorbic Acid Serum Alcohol Influenza A (Rapid) Influenza B (Rapid) 08/25/19 08/25/19 08/25/19 03:05 03:57 05:10 WBC RBC Hgb Hct MCV MCH MCHC RDW Plt Count MPV Neut % (Auto) Lymph % (Auto) [place] % (Auto) Eos % (Auto) Baso % (Auto) Absolute Neuts (auto) Absolute Lymphs (auto) Absolute Monos (auto) Absolute Eos (auto) Absolute Basos (auto) Absolute Nucleated RBC Nucleated RBC % D-Dimer, Quantitative Patient Temperature ABG pH ABG pH (Temp Correct) ABG pCO2 ABG pCO2 (Temp Corrct ABG pO2 ABG pO2 (Temp Correct ABG HCO3 ABG O2 Saturation ABG Base Excess Respiration Rate O2 Delivery Device Ventilator Type Vent Mode FiO2 Inspiratory Time PEEP Pressure Support Pressure Control EPAP IPAP BiPAP Sodium Potassium Chloride Carbon Dioxide Anion Gap BUN Creatinine Est GFR ( Amer) Est GFR (Non-Af Amer) BUN/Creatinine Ratio Glucose POC Glucose (mg/dL) 65 L 121 H 240 H Glucose Meter Confirm Serum Osmolality Lactic Acid Calcium Magnesium Total Bilirubin AST ALT Alkaline Phosphatase Total Creatine Kinase Troponin I C-Reactive Protein Total Protein Albumin Globulin Albumin/Globulin Ratio Urine Color Urine Appearance Urine pH Ur Specific [place] Urine Protein Urine Ketones Urine Blood Urine Nitrate Urine Bilirubin Urine Urobilinogen Ur Leukocyte Esterase Urine Glucose Urine Ascorbic Acid Serum Alcohol Influenza A (Rapid) Influenza B (Rapid) 08/25/19 08/25/19 08/25/19 06:09 06:09 07:03 WBC RBC Hgb Hct MCV MCH MCHC RDW Plt Count MPV Neut % (Auto) Lymph % (Auto) [place] % (Auto) Eos % (Auto) Baso % (Auto) Absolute Neuts (auto) Absolute Lymphs (auto) Absolute Monos (auto) Absolute Eos (auto) Absolute Basos (auto) Absolute Nucleated RBC Nucleated RBC % D-Dimer, Quantitative Patient Temperature ABG pH ABG pH (Temp Correct) ABG pCO2 ABG pCO2 (Temp Corrct ABG pO2 ABG pO2 (Temp Correct ABG HCO3 ABG O2 Saturation ABG Base Excess Respiration Rate O2 Delivery Device Ventilator Type Vent Mode FiO2 Inspiratory Time PEEP Pressure Support Pressure Control EPAP IPAP BiPAP Sodium 165 H* Potassium 5.0 Chloride 128 H Carbon Dioxide 31 Anion Gap 6 BUN 25 H Creatinine 1.11 Est GFR ( Amer) 78.8 Est GFR (Non-Af Amer) 65.1 BUN/Creatinine Ratio 22.5 H Glucose 183 H POC Glucose (mg/dL) 176 H 183 H Glucose Meter Confirm Serum Osmolality Lactic Acid Calcium 9.0 Magnesium Total Bilirubin AST ALT Alkaline Phosphatase Total Creatine Kinase Troponin I C-Reactive Protein 209.72 H Total Protein Albumin Globulin Albumin/Globulin Ratio Urine Color Urine Appearance Urine pH Ur Specific [place] Urine Protein Urine Ketones Urine Blood Urine Nitrate Urine Bilirubin Urine Urobilinogen Ur Leukocyte Esterase Urine Glucose Urine Ascorbic Acid Serum Alcohol Influenza A (Rapid) Influenza B (Rapid) Nutrition: Start PO Impression: DKA and severe hyperosmolarity Plan: DKA - resolved. Hard to know for sure if his AG was all DKA, he had a lactate from WOB and hypoperfusion, no BHB to mitigate. Hyperosmolarity - profoundly hyperosmolar on presentation with Osm approaching 400. Glucose has been corrected and as a result the Na has appropriately risen and thankfully so. Had the Na not risen the drop in Osm would have been even more extreme. There is no mitchell to get him on free water and drop his Osms more quickly. NS is hypotonic to this patient right now and will do a nice job dropping him at a metered rate. Will check labs Q12H. Diabetes Mellitus - will treat as IDDM for now. transition insulin gtt to Lantus and SSIC. Check HgbA1C with next labs. D/W pt and family in detail at bedside.
[2019-08-25] MEDS ORDERED: Dextrose 50% Syringe 50 ML* 25 GM/50 ML SYRINGE IV PUSH PRN (10:32)
[2019-08-25] MEDS: Insulin GLARGINE(*) 1 UNITS UNIT SUBCUT SCH (11:50)
[2019-08-25] MEDS: Insulin LISPRO* 1 UNITS UNIT SUBCUT SCH ×3 (12:31→21:17)
[2019-08-25 15:04] LABS: ABS Lymphocytes 1.7 10^3/ul (1.0-4.8); ABS Monocytes 0.5 10^3/ul (0-0.8); ABS Neutrophils 6.8 10^3/ul (1.5-7.7); Eosinophil % 0.2 %; Hematocrit 38 % (42-52); Hemoglobin 12.7 g/dL (14.0-18.0); Lymphocyte % 18.7 %; Mean Corpuscular HGB Conc 33 g/dL (31-36); Mean Corpuscular Hemoglobin 34 pg (27-31); Mean Corpuscular Volume 102 fL (80-94); Mean Platelet Volume 8.5 fL (7.4-10.4); Nucleated Red Blood Cells % 0.1; Platelet Count 180 10^3/uL (150-450); Red Blood Count 3.76 10^6 /uL (4.18-5.48); Red Cell Distribution Width 15 % (10-15); White Blood Count 9.1 10^3/uL (3.5-10.8)
[2019-08-25] MEDS: cefTRIAXone(*) 1 GM in NS 0.9% 50 ML* 50 ML IVPB SCH (17:40)
[2019-08-25 18:52] LABS: Albumin 3.1 g/dL (3.2-5.2); BUN/Creatinine Ratio 21.9 (8-20); Calcium 8.6 mg/dL (8.6-10.3); EGFR Non-African American 69.4 (>60); Magnesium 2.1 mg/dL (1.9-2.7); Phosphorus 2.5 mg/dL (2.5-5.0); Potassium 3.4 mmol/L (3.5-5.0); Total Bilirubin 0.3 mg/dL (0.2-1.0); Total Protein 6.1 g/dL (6.4-8.9)
[2019-08-25] MEDS: Azithromycin 500 mg/250 ml NS 500 MG/250 ML BAG IVPB SCH (20:54)
[2019-08-25] MEDS: Enoxaparin(*) 40 MG/0.4 ML SYR SUBCUT SCH (20:54)
[2019-08-26] MEDS: NS 0.9% 1000 ML** 1,000 ML IV SCH ×2 (04:40→11:34)
[2019-08-26 07:43] LABS: Albumin 2.6 g/dL (3.2-5.2); BUN/Creatinine Ratio 26.5 (8-20); Calcium 7.7 mg/dL (8.6-10.3); EGFR African American 110.2 (>60); EGFR Non-African American 91.1 (>60); Globulin 2.5 g/dL (2-4); Magnesium 1.7 mg/dL (1.9-2.7); Phosphorus 2.5 mg/dL (2.5-5.0); Potassium 3.5 mmol/L (3.5-5.0); Total Bilirubin 0.4 mg/dL (0.2-1.0); Total Protein 5.1 g/dL (6.4-8.9)
[2019-08-26] MEDS: Insulin LISPRO* 1 UNITS UNIT SUBCUT SCH ×4 (08:44→20:44)
[2019-08-26] MEDS ORDERED: Magnesium Sulfate 2 GM IV* 2 GM/50 ML BAG IVPB ONE (11:40)
--- NOTE | 2019-08-26 11:47 | PN ---
Date of Service: 08/26/19 Critical Care Services: Continues to improve Vital Signs: Temp Pulse Resp BP SpO2 FiO2 37.0 C 77 17 109/75 95 08/26/19 07:59 08/26/19 11:01 08/26/19 11:01 08/26/19 11:01 08/26/19 11:01 Physical Exam: Gen: NAD, comfortable HEENT: NCAT, PERRL Lungs: clear Cardiac: S1S2 regular Abdomen: soft, NT, ND, +BS Extremities: no edema Neuro: A&O, grossly non focal Fluid Balance (Past 24 Hours): I= O= Net Intake & Output 08/24/19 08/25/19 08/26/19 08/27/19 06:59 06:59 06:59 06:59 Intake Total 5104 6480 Output Total 3500 875 Balance 1604 5605 Weight 82 kg 82.282 kg Intake: IV Fluids 5100 3743 NS (0.9%) 3743 IVPB 275 NS (0.9%) 275 Medicated IV 4 12 CC - Insulin 4 12 Oral 0 2450 Output: Urine 3500 875 Labs: Laboratory Results - last 24 hr 08/25/19 08/25/19 08/25/19 06:09 06:09 11:28 WBC 9.1 RBC 3.76 L Hgb 12.7 L Hct 38 L MCV 102 H MCH 34 H MCHC 33 RDW 15 Plt Count 180 MPV 8.5 Neut % (Auto) 74.9 Lymph % (Auto) 18.7 Harrison % (Auto) 6.0 Eos % (Auto) 0.2 Baso % (Auto) 0.2 Absolute Neuts (auto) 6.8 Absolute Lymphs (auto) 1.7 Absolute Monos (auto) 0.5 Absolute Eos (auto) 0.0 Absolute Basos (auto) 0.0 Absolute Nucleated RBC 0.0 Nucleated RBC % 0.1 Sodium Potassium Chloride Carbon Dioxide Anion Gap BUN Creatinine Est GFR ( Amer) Est GFR (Non-Af Amer) BUN/Creatinine Ratio Glucose POC Glucose (mg/dL) 211 H Glucose Meter Confirm Hemoglobin A1c 13.7 H Calcium Ionized Calcium Phosphorus Magnesium Total Bilirubin AST ALT Alkaline Phosphatase Total Protein Albumin Globulin Albumin/Globulin Ratio 08/25/19 08/25/19 08/25/19 12:22 12:28 13:44 WBC RBC Hgb Hct MCV MCH MCHC RDW Plt Count MPV Neut % (Auto) Lymph % (Auto) Harrison % (Auto) Eos % (Auto) Baso % (Auto) Absolute Neuts (auto) Absolute Lymphs (auto) Absolute Monos (auto) Absolute Eos (auto) Absolute Basos (auto) Absolute Nucleated RBC Nucleated RBC % Sodium Potassium Chloride Carbon Dioxide Anion Gap BUN Creatinine Est GFR ( Amer) Est GFR (Non-Af Amer) BUN/Creatinine Ratio Glucose POC Glucose (mg/dL) 401 H* 190 H Glucose Meter Confirm 206 H Hemoglobin A1c Calcium Ionized Calcium Phosphorus Magnesium Total Bilirubin AST ALT Alkaline Phosphatase Total Protein Albumin Globulin Albumin/Globulin Ratio 08/25/19 08/25/19 08/25/19 14:47 16:10 18:10 WBC RBC Hgb Hct MCV MCH MCHC RDW Plt Count MPV Neut % (Auto) Lymph % (Auto) Harrison % (Auto) Eos % (Auto) Baso % (Auto) Absolute Neuts (auto) Absolute Lymphs (auto) Absolute Monos (auto) Absolute Eos (auto) Absolute Basos (auto) Absolute Nucleated RBC Nucleated RBC % Sodium 159 H* Potassium 3.4 L D Chloride 125 H Carbon Dioxide 28 Anion Gap 6 BUN 23 Creatinine 1.05 Est GFR ( Amer) 84.0 Est GFR (Non- Amer) 69.4 BUN/Creatinine Ratio 21.9 H Glucose 70 POC Glucose (mg/dL) 189 H 144 H Glucose Meter Confirm Hemoglobin A1c Calcium 8.6 Ionized Calcium Phosphorus 2.5 Magnesium 2.1 Total Bilirubin 0.30 AST 58 H ALT 38 Alkaline Phosphatase 124 H Total Protein 6.1 L Albumin 3.1 L Globulin 3.0 Albumin/Globulin Ratio 1.0 08/25/19 08/26/19 08/26/19 21:09 00:48 07:16 WBC RBC Hgb Hct MCV MCH MCHC RDW Plt Count MPV Neut % (Auto) Lymph % (Auto) Harrison % (Auto) Eos % (Auto) Baso % (Auto) Absolute Neuts (auto) Absolute Lymphs (auto) Absolute Monos (auto) Absolute Eos (auto) Absolute Basos (auto) Absolute Nucleated RBC Nucleated RBC % Sodium 147 H D Potassium 3.5 Chloride 120 H Carbon Dioxide 23 Anion Gap 4 BUN 22 Creatinine 0.83 Est GFR ( Amer) 110.2 Est GFR (Non-Af Amer) 91.1 BUN/Creatinine Ratio 26.5 H Glucose 183 H POC Glucose (mg/dL) 230 H Glucose Meter Confirm Hemoglobin A1c Calcium 7.7 L Ionized Calcium 0.67 L* Phosphorus 2.5 Magnesium 1.7 L Total Bilirubin 0.40 AST 58 H ALT 43 Alkaline Phosphatase 101 Total Protein 5.1 L Albumin 2.6 L Globulin 2.5 Albumin/Globulin Ratio 1.0 08/26/19 07:16 WBC RBC Hgb Hct MCV MCH MCHC RDW Plt Count MPV Neut % (Auto) Lymph % (Auto) Harrison % (Auto) Eos % (Auto) Baso % (Auto) Absolute Neuts (auto) Absolute Lymphs (auto) Absolute Monos (auto) Absolute Eos (auto) Absolute Basos (auto) Absolute Nucleated RBC Nucleated RBC % Sodium Potassium Chloride Carbon Dioxide Anion Gap BUN Creatinine Est GFR ( Amer) Est GFR (Non-Af Amer) BUN/Creatinine Ratio Glucose POC Glucose (mg/dL) Glucose Meter Confirm Hemoglobin A1c Calcium Ionized Calcium 1.09 L Phosphorus Magnesium Total Bilirubin AST ALT Alkaline Phosphatase Total Protein Albumin Globulin Albumin/Globulin Ratio Nutrition: Eating CCHO Impression: IDDM presents with DKA and profound hyperosmolarity in the setting of pneumococcal pneumonia Plan: DKA - resolved. Hyperosmolarity - almost resolved. Opening Osmolarity close to 400. Na now down to 147 and glucose better controlled on insulin and BUN approaching nl range. Important to note that this was all accomplished with NORMAL SALINE, including the last 24 hrs where he fell from 159 to 147. Still needs more hydration but will allow him to do it PO now. 7200cc positive balance last 48 hrs. STEPHANI - resolved with Cr now nl but BUN:Cr still close to 30 though resolving. IDDM - HgbA1C 13.7 as suspected. Lantus 20 is giving us glucoses in the high 100s and low 200s. Will advance to 30 units today and continue AC/HS coverage. DM education. D/W pt in detail. OK to medicine.
[2019-08-26] MEDS: Insulin GLARGINE(*) 1 UNITS UNIT SUBCUT SCH (11:48)
[2019-08-26] MEDS ORDERED: Insulin GLARGINE(*) 1 UNITS UNIT SUBCUT SCH (12:00)
[2019-08-26] MEDS ORDERED: Calcium Gluconate INJ* 2 GM in NS 0.9% 100 ML* 100 ML IV ONE (12:00)
[2019-08-26] MEDS ORDERED: Calcium Carbonate CHEW TAB* 500 MG (TUMS) PO ONE (12:00)
[2019-08-26] MEDS ORDERED: Insulin GLARGINE(*) 1 UNITS UNIT SUBCUT ONE (12:30)
[2019-08-26] MEDS ORDERED: celeCOXIB CAP* 200 MG PO PRN (12:47)
[2019-08-26] MEDS: cefTRIAXone(*) 1 GM in NS 0.9% 50 ML* 50 ML IVPB SCH (18:09)
[2019-08-26] MEDS: Azithromycin 500 mg/250 ml NS 500 MG/250 ML BAG IVPB SCH (20:44)
[2019-08-26] MEDS: Enoxaparin(*) 40 MG/0.4 ML SYR SUBCUT SCH (20:44)
[2019-08-27 07:08] LABS: Hematocrit 33 % (42-52); Hemoglobin 11.6 g/dL (14.0-18.0); Mean Corpuscular HGB Conc 35 g/dL (31-36); Mean Corpuscular Hemoglobin 34 pg (27-31); Mean Corpuscular Volume 98 fL (80-94); Mean Platelet Volume 8.1 fL (7.4-10.4); Platelet Count 123 10^3/uL (150-450); Red Blood Count 3.38 10^6 /uL (4.18-5.48); Red Cell Distribution Width 14 % (10-15); White Blood Count 5.8 10^3/uL (3.5-10.8)
[2019-08-27 08:39] LABS: Calcium 8.1 mg/dL (8.6-10.3); Magnesium 1.9 mg/dL (1.9-2.7); Potassium 3.8 mmol/L (3.5-5.0)
[2019-08-27 08:43] LABS: BUN/Creatinine Ratio 21.3 (8-20); Phosphorus 2.6 mg/dL (2.5-5.0)
[2019-08-27] MEDS: Insulin LISPRO* 1 UNITS UNIT SUBCUT SCH ×4 (09:02→20:09)
[2019-08-27] MEDS: metFORMIN* 500 MG TAB PO SCH ×2 (13:15→20:05)
[2019-08-27] MEDS: Insulin GLARGINE(*) 1 UNITS UNIT SUBCUT SCH (13:17)
--- NOTE | 2019-08-27 15:07 | PN ---
Subjective Date of Service: 08/27/19 Interval History: Pt had been diabetic on metformin x 6 years. for the past 2 months was on prednisone taper for arthropathy (as per Dr. Ferreira)-just stopped 4 days ago. [place] was drinking a lot of fruit juice at home. Objective Active Medications: Acetaminophen (Tylenol Tab*) 650 mg PO Q4H PRN PRN Reason: MILD PAIN or TEMP > 100.4 Al Hydrox/Mg Hydrox/Simethicone (Maalox Plus*) 30 ml PO Q6H PRN PRN Reason: INDIGESTION Last Admin: 08/26/19 12:56 Dose: 30 ml Celecoxib (Celebrex Cap*) 200 mg PO BID PRN PRN Reason: PAIN - MODERATE Dextrose (D50w Syringe 50 Ml*) 12.5 gm IV PUSH .FOR FS < 60 - SS PRN PRN Reason: FS < 60 Enoxaparin Sodium (Lovenox(*)) 40 mg SUBCUT Q24H [facility] Last Admin: 08/26/19 20:44 Dose: 40 mg Azithromycin (Zithromax 500 Mg/250 Ml) 500 mg in 250 mls @ 250 mls/hr IVPB Q24H [facility] Last Admin: 08/26/19 20:44 Dose: 250 mls/hr Ceftriaxone Sodium 1 gm/ (Sodium Chloride) 50 mls @ 100 mls/hr IVPB Q24H [facility] Last Admin: 08/26/19 18:09 Dose: 100 mls/hr Insulin Glargine (Lantus(*)) 30 units SUBCUT Q24H [facility] Last Admin: 08/27/19 13:17 Dose: 30 units Insulin Human Lispro (Humalog*) 0 units SUBCUT FS ACHS ICU SEB; Protocol Last Admin: 08/27/19 13:16 Dose: 12 units Metformin HCl (Glucophage*) 500 mg PO BID [facility] Last Admin: 08/27/19 13:15 Dose: 500 mg Ondansetron HCl (Zofran Inj*) 4 mg IV Q4H PRN PRN Reason: NAUSEA/VOMITING Senna (Senokot 8.6 Mg Tab*) 1 tab PO BID PRN PRN Reason: CONSTIPATION Vital Signs - 8 hr 08/27/19 08:00 Respiratory 16 Rate Oxygen Devices in Use Now: None Appearance: 73 yo M in nAD, aAOx3 Eyes: No Scleral Icterus, PERRLA Ears/Nose/Mouth/Throat: NL Teeth, Lips, Gums, Mucous Membranes Moist Neck: NL Appearance and Movements; NL JVP, Trachea Midline Respiratory: Symmetrical Chest Expansion and Respiratory Effort, Clear to Auscultation Cardiovascular: NL Sounds; No Murmurs; No JVD, RRR Abdominal: NL Sounds; No Tenderness; No Distention Lymphatic: No Cervical Adenopathy, No Axillary Adenopathy Skin: No Rash or Ulcers Neurological: Alert and Oriented x 3, NL Muscle Strength and Tone Result Diagrams: 08/27/19 06:55 08/27/19 06:55 Microbiology and Other Data: Microbiology 08/24/19 16:51 Gram Stain - Final Sputum Sputum Culture - Preliminary Streptococcus Pneumoniae YEAST 08/24/19 16:18 Aerobic Blood Culture - Preliminary Blood Venous No Growth Day 2 Anaerobic Blood Culture - Preliminary No Growth Day 2 08/24/19 16:18 Aerobic Blood Culture - Preliminary Blood Venous No Growth Day 2 Anaerobic Blood Culture - Preliminary No Growth Day 2 08/24/19 20:30 Nasal Screen MRSA (PCR) - Final Nasal Mrsa Not Detected Assess/Plan/Problems-Billing Assessment: 73 yo m with h/o DM presented with BG>1000 and hyperosmoloar nonketotic state as well as strep pneumo PNA - Patient Problems (1) Diabetic hyperosmolar non-ketotic state Comment: BG still uncontroled Restarting metformin cont ISS cont Lantus 30 U Cont DM edcuation and nutrition consult (2) Pneumonia Comment: cont Ceftriaxone sputum cx positive for strep pneumo pt is asymptomatic (3) STEPHANI (acute kidney injury) Comment: resolved (4) DVT prophylaxis Comment: lovenox Status and Disposition: inpatient
[2019-08-27] MEDS: cefTRIAXone(*) 1 GM in NS 0.9% 50 ML* 50 ML IVPB SCH (17:08)
[2019-08-27] MEDS: Enoxaparin(*) 40 MG/0.4 ML SYR SUBCUT SCH (20:05)
[2019-08-28] MEDS: Insulin LISPRO* 1 UNITS UNIT SUBCUT SCH ×2 (08:46→13:02)
[2019-08-28] MEDS: metFORMIN* 500 MG TAB PO SCH (08:46)
--- NOTE | 2019-08-28 11:30 | DS ---
CC: Dr. Kaur * DISCHARGE SUMMARY: DATE OF ADMISSION: 08/24/19 DATE OF DISCHARGE: 08/28/19 PRIMARY CARE PROVIDER: Dr. Kaur. DISPOSITION ON DISCHARGE: Home. CONDITION ON DISCHARGE: Stable. DISCHARGE DIAGNOSES: 1. Nonketotic hyperosmolar state in a patient whose glucose level at admission was 1043. 2. Acute kidney injury due to the above. 3. Streptococcus pneumoniae. SECONDARY DIAGNOSES: 1. History of recently diagnosed inflammatory arthropathy, on prednisone taper by Dr. Ferreira. 2. Diabetes, type 2. MEDICATIONS AT DISCHARGE: Include, 1. Insulin Lantus 30 units daily. 2. Celebrex 200 mg b.i.d.. 3. Augmentin 875 mg t.i.d. for 5 days total. 4. Metformin 1000 mg daily. LABORATORY DATA AND STUDIES PERFORMED DURING HOSPITAL STAY: Included: On 08/27, sodium 143, potassium 3.8, chloride 114, carbon dioxide 25, BUN 17, creatinine 0.8. CBC on 08/27/19 shows a white count of 5.8, hemoglobin of 11.6 , hematocrit of 33, MCV of 98 and platelets of 123. Hemoglobin A1c was noted be 13.7. Microbiology tests, blood cultures were negative growth. Sputum cultures were positive for yeast and Strep pneumoniae. Brain CT obtained on admission, impression: "No acute intracranial findings. Sinus disease as described. There is fluid level in the left maxillary for acute sinusitis." Chest x-ray obtained on admission, impression: "Left greater than right air space opacification. Infiltrate versus atelectasis. Severe left glenohumeral osteoarthropathy." HOSPITALIZATION COURSE: Wolf Murray is a 73-year-old male who had been bothered by arthritis in the past several months, for which he had been on slow prednisone taper as per Dr. Ferreira. His prednisone was stopped on 08/22/19. The patient stated that for quite some time now, he has had problems with polyuria and polydipsia. When he had polydipsia, he decided that he is going to drink lot of fruit juices, which made his status again worse really. When he came into the hospital, he was noted to have altered mental status with sugar level at 1042, He was admitted to the intensive care unit, treated with insulin drip initially, but later on plenty of IV fluids provided adequate treatment. The patient's sugars had normalized. He was noted to have a hemoglobin A1c of above 13. Also chest x-ray showed bilateral lung infiltrates and microbiology studies showed sputum positive for Strep pneumo. He was treated with ceftriaxone throughout his hospital stay. He is going to be on Augmentin at discharge. During the hospital stay, the patient was taught how to use insulin Lantus and he is going to go 1 shot a day. He was also taught how to use glucometer and he is going to be prescribed a glucometer to use a twice day. He is instructed to use the glucometer before breakfast and before going to be and to call his primary care provider if sugars are below 90 or above 300. His metformin was also increased to 1000 mg twice a day from 500. The patient is recommended to followup with his primary care provider in 4 to 7 days. PHYSICAL EXAMINATION AT THE TIME OF DISCHARGE: Vital Signs: Blood pressure 101 /65, heart rate of 74 and regular, respiratory rate 16, oxygen saturation 96% on room air, temperature 98.0. General: The patient is a very pleasant 73-year -old male who is in no acute distress. The patient is alert and oriented x3. HEENT: Head is atraumatic, normocephalic. Eyes: Pupils equal and reactive to light and accommodation. Oropharynx clear. Mucosa moist. Neck: Supple. No JVD. No bruits bilaterally. Cardiovascular: Regular rate and rhythm. No murmur. Respiratory: Clear to auscultation bilaterally. Abdomen: Soft, nontender. Bowel sounds present in all 4 quadrants. Extremities: There is no edema. Pulses +2 bilaterally. No clubbing or cyanosis. Neuro Evaluation: Speech clear. Cranial nerves II through XII grossly intact. Motor strength is 5/5 bilaterally. Please note this is a short summary of the patient's hospital stay. Please refer to further medical records for details. TIME SPENT: Approximately 45 minutes was spent in preparation of the patient's discharge. [id number]/[facility] #: [id number] ALFA
[2019-08-28] MEDS: Insulin GLARGINE(*) 1 UNITS UNIT SUBCUT SCH (13:03)
[2019-08-28 14:06] VITALS: BP 129/70
== END 2019-08-28 14:40 | disposition home or self-care (01) | DRG 637 ==
LOC: ED 14:45 → ICU 18:16 → MED 08-26 12:28
PROVIDERS: ADMIT Internal Medicine; ATTEND Internal Medicine
DX: E11.00 Type 2 diabetes mellitus with hyperosmolarity without nonketotic hyperglycemic-hyperosmolar coma (NKHHC) (principal); J13 Pneumonia due to Streptococcus pneumoniae; N17.9 Acute kidney failure, unspecified; E87.0 Hyperosmolality and hypernatremia; E11.10 Type 2 diabetes mellitus with ketoacidosis without coma; E86.0 Dehydration; M12.80 Other specific arthropathies, not elsewhere classified, unspecified site; Z79.4 Long term (current) use of insulin; Z72.89 Other problems related to lifestyle
CPT/HCPCS: 36415; 70450; 71045; 80048; 80053; 80320; 81003; 82330; 82550; 82803; 82947; 83036; 83605; 83735; 83930; 84100; 84484; 85025; 85027; 85379; 86140; 87040; 87070; 87077; 87186; 87205; 87641; 93005; 99285; A9270-GY; G0480; J0456; J0610; J0696; J1650; J3475; J3480